=== PATIENT | female | born 1995 | race Hispanic/Latino ===

== ENCOUNTER 2018-01-11 15:08 | Emergency (ER) | payer OTHER ==
[2018-01-11] MEDS: dexameTHASONE 4 MG/ML 1ML VIAL (J1100) PO (15:53)
[2018-01-11] MEDS: ACETAMINOPHEN SUSP DYE FREE 160 MG/5 ML UDC PO (15:54)
[2018-01-11] MEDS: IBUPROFEN 100 MG/5 ML SUSP UDC DYE FREE PO (15:54)
== END 2018-01-11 16:50 | disposition home or self-care (01) ==
LOC: M ED 15:08
DX: J02.0 Streptococcal pharyngitis (principal); F98.8 Other specified behavioral and emotional disorders with onset usually occurring in childhood and adolescence; Z98.84 Bariatric surgery status; Z91.030 Bee allergy status
CPT/HCPCS: J1100

== ENCOUNTER 2018-01-31 14:52 | Inpatient (IN) | payer OTHER ==
[2018-01-31 15:35] LABS: HEMATOCRIT 38.6 % (36.0-47.0); HEMOGLOBIN 12.3 g/dl (12.0-15.5); MEAN CORPUSCULAR HEMOGLOBIN 27.2 pg (27.0-33.0); MEAN CORPUSCULAR HGB CONC 31.9 g/dl (32.0-36.5); MEAN CORPUSCULAR VOLUME 85.4 fl (80.0-96.0); PLATELET COUNT, AUTOMATED 350 10^3/uL (150-450); RED BLOOD COUNT 4.52 10^6/uL (4.00-5.40); RED CELL DISTRIBUTION WIDTH 13.3 % (11.5-14.5); WHITE BLOOD COUNT 6.2 10^3/uL (4.0-10.0)
[2018-01-31 15:48] LABS: CONTROL LINE HCG INT CTR LINE PRESENT; HCG, SERUM QUALITATIVE NEGATIVE (NEGATIVE)
[2018-01-31 17:15] LABS: ALKALINE PHOSPHATASE 67 U/L (45-117); ALT/SGPT 24 U/L (12-78); ANION GAP 7 MEQ/L (8-16); AST/SGOT 22 U/L (7-37); BILIRUBIN,DIRECT 0.1 MG/DL (0.0-0.2); BILIRUBIN,TOTAL 0.5 MG/DL (0.2-1.0); BLOOD UREA NITROGEN 10 MG/DL (7-18); CALCIUM LEVEL 9.4 MG/DL (8.5-10.1); CARBON DIOXIDE LEVEL 27 MEQ/L (21-32); CHLORIDE LEVEL 107 MEQ/L (98-107); ETHYL ALCOHOL (ETHANOL) < 0.003 % (0.000-0.010); POTASSIUM SERUM 3.8 MEQ/L (3.5-5.1); SALICYLATE LEVEL < 1.7 MG/DL (5.0-30.0); SODIUM LEVEL 141 MEQ/L (136-145); THYROID STIMULATING HORMONE 0.908 uIU/ML (0.463-3.98); TOTAL PROTEIN 7.8 GM/DL (6.4-8.2)
[2018-01-31 17:16] LABS: AMPHETAMINES LEVEL URINE NEGATIVE (NEGATIVE); BARBITURATES URINE NEGATIVE (NEGATIVE); BENZODIAZEPINES URINE NEGATIVE (NEGATIVE); CANNABINOIDS URINE POSITIVE (NEGATIVE); COCAINE METABOLITE URINE NEGATIVE (NEGATIVE); METHADONE URINE NEGATIVE (NEGATIVE); OPIATES URINE NEGATIVE (NEGATIVE); PHENCYCLIDINE URINE NEGATIVE (NEGATIVE)
[2018-01-31 17:59] LABS: ACETAMINOPHEN LEVEL < 2.0 UG/ML (10.0-30.0); GLUCOSE, FASTING 88 MG/DL (70-100)
[2018-01-31 18:00] LABS: ALBUMIN/GLOBULIN RATIO 1.05 (1.00-1.93)
[2018-01-31] MEDS ORDERED: traZODone 50 MG TAB PO (22:00)
[2018-01-31] MEDS ORDERED: MOM 30ML SUSPENSION UDC PO (22:00)
[2018-02-01] MEDS: ACETAMINOPHEN TAB 650MG DOSE (2X325MG) PO (03:43)
[2018-02-01] MEDS: INFLUENZA QUADRIVALENT PF VACCINE 0.5ML SYRINGE (90686) IM (09:00)
[2018-02-01] MEDS: QUEtiapine FUMARATE 50 MG TAB PO (20:38)
[2018-02-02] MEDS: MAALOX 30 ML SUSP *UDC PO (12:56)
[2018-02-02] MEDS: QUEtiapine FUMARATE 50 MG TAB PO (21:48)
[2018-02-03] MEDS: MAALOX 30 ML SUSP *UDC PO (09:00)
[2018-02-03] MEDS: LORazepam 1 MG TAB PO (12:45)
[2018-02-03 13:17] LABS: AMORPHOUS SEDIMENT RFX SMALL (NEGATIVE); KETONE, URINE AUTO RFX NEGATIVE (NEGATIVE); LEUKOCYTE ESTERASE UR AUTO RFX NEGATIVE (NEGATIVE); MUCUS, URINE RFX SMALL (NEGATIVE); NITRITE, URINE AUTO RFX NEGATIVE (NEGATIVE); RBC, URINE AUTO RFX 5 /HPF (0-3); SQUAM EPITHELIAL CELL UR AURFX 51 /HPF (0-6); WBC, URINE AUTO RFX 1 /HPF (0-3)
[2018-02-03] MEDS: QUEtiapine FUMARATE 50 MG TAB PO (20:51)
[2018-02-04] MEDS: ARIPiprazole 2 MG TAB PO ×2 (09:00→20:36)
[2018-02-04 12:06] LABS: HEPATITIS A ANTIBODY IGM NEGATIVE (NEGATIVE); HEPATITIS B CORE ANTIBODY IGM NEGATIVE (NEGATIVE); HEPATITIS B SURFACE ANTIGEN NEGATIVE (NEGATIVE); HIV 1&2 SCREEN CENTAUR NEGATIVE (NEGATIVE)
[2018-02-04 12:06] LABS: HEPATITIS C VIRUS ABY INDEX 0.1 INDEX (<0.8)
[2018-02-04 15:57] LABS: CHLAMYDIA DNA AMPLIFICATION NEGATIVE (NEGATIVE); GC DNA AMPLIFICATION NEGATIVE (NEGATIVE)
[2018-02-04] MEDS ORDERED: hydrOXYzine 50 MG TAB PO (16:15)
[2018-02-04 17:22] LABS: CHLAMYDIA DNA AMPLIFICATION NEGATIVE (NEGATIVE); GC DNA AMPLIFICATION NEGATIVE (NEGATIVE)
[2018-02-04] MEDS: QUEtiapine FUMARATE 50 MG TAB PO (20:36)
[2018-02-04] MEDS ORDERED: QUEtiapine FUMARATE 25 MG TAB PO (21:00)
[2018-02-05] MEDS: ARIPiprazole 2 MG TAB PO ×2 (08:23→20:53)
[2018-02-05] MEDS: ACETAMINOPHEN TAB 650MG DOSE (2X325MG) PO (18:12)
[2018-02-05] MEDS: QUEtiapine FUMARATE 50 MG TAB PO (20:53)
[2018-02-06] MEDS: ARIPiprazole 2 MG TAB PO ×2 (08:36→21:37)
[2018-02-06] MEDS: QUEtiapine FUMARATE 50 MG TAB PO (21:38)
[2018-02-07] MEDS: ARIPiprazole 2 MG TAB PO ×2 (08:54→21:40)
[2018-02-07] MEDS: QUEtiapine FUMARATE 50 MG TAB PO (21:40)
[2018-02-08] MEDS: ARIPiprazole 2 MG TAB PO (08:28)
== END 2018-02-08 17:30 | disposition home or self-care (01) | DRG 885 ==
LOC: M PSY 02-01 01:47 → M ED 14:52 → M ED INP 22:00
DX: F31.9 Bipolar disorder, unspecified (principal); F41.0 Panic disorder [episodic paroxysmal anxiety]; F12.10 Cannabis abuse, uncomplicated; Z62.810 Personal history of physical and sexual abuse in childhood; Z81.8 Family history of other mental and behavioral disorders; G47.00 Insomnia, unspecified; Z98.84 Bariatric surgery status; Z91.030 Bee allergy status; Z79.899 Other long term (current) drug therapy